=== PATIENT | male | born 1970 | race Asian ===

== ENCOUNTER → 2018-10-18 | Outpatient (CLI) | payer BC ==
[~2018-10-18] MED LIST: HYDR-3876 PO; NITR-33 PO; ROSU10TA12 PO
--- NOTE | 2018-10-18 14:56 | Diagnostic Imaging Report ---
INDICATION: Right-sided low back pain. Time of exam 11:58 AM 3 views of the lumbar spine were obtained. Curvature and alignment is normal. Vertebral body heights are maintained. Disc spaces are preserved. Minimal anterior spurring is seen at L4 and L5 levels. No fracture is detected. IMPRESSION: No acute bony abnormality is detected. Dictated by: Dictated on workstation # [id number]
== END ==
LOC: RAD FS 11:44
PROVIDERS: ATTEND Family Medicine
DX: M54.5 Low back pain (principal)
CPT/HCPCS: 72100

== ENCOUNTER → 2018-11-25 | Outpatient (CLI) | payer OTHER ==
--- NOTE | 2018-11-25 10:27 | Diagnostic Imaging Report ---
PROCEDURE: MRI lumbar spine. TECHNIQUE: Multiplanar, multisequence MRI of the lumbar spine was performed without contrast. INDICATION: Low back pain and right leg pain and numbness. COMPARISON: No prior studies are available for comparison. FINDINGS: There is some straightening of the normal lumbar lordotic curvature. Vertebral body heights are maintained. The marrow signal intensity is unremarkable. No geographic marrow lesion is seen. No fracture is identified. There is fairly normal height and signal intensity to the lumbar intervertebral discs with the exception of some mild disc space narrowing and desiccation at L4-5 level compatible with degenerative change. Conus is unremarkable at the L1 level. T12-L1: Central canal and neural foramina are widely patent. L1-2: Minimal ligamentous thickening is seen. Central canal and neural foramina remain patent. There are mild facet degenerative changes noted. L2-3: There is mild ligamentous thickening noted. Central canal remains patent. There does appear to be some broad-based far lateral disc/osteophyte complex narrowing the left neural foramen. This is noted to a mild degree on the right as well. L3-4: There is ligamentous thickening. There is some mild flattening of the ventral thecal sac but AP dimensions of the canal remain within normal limits. There does appear to be moderate bilateral neural foraminal narrowing due to broad-based disc/osteophyte complex. L4-5: Broad-based disc/osteophyte complex indents the ventral thecal sac. This does result in moderate narrowing of the central canal. There is also significant bilateral lateral recess stenosis. There is also moderate bilateral neural foraminal stenosis. L5-S1: Central canal is patent. Neural foramina are patent. The paraspinous tissues are unremarkable. IMPRESSION: Lumbar spondylosis and multilevel central canal, lateral recess and neural foraminal narrowing described level by level above. Dictated by: Dictated on workstation # [id number]
== END ==
LOC: RAD 08:50
PROVIDERS: ATTEND Family Medicine
DX: M48.061 Spinal stenosis, lumbar region without neurogenic claudication (principal); M47.816 Spondylosis without myelopathy or radiculopathy, lumbar region; M51.16 Intervertebral disc disorders with radiculopathy, lumbar region
CPT/HCPCS: 72148

== ENCOUNTER → 2019-01-31 | Outpatient (CLI) | payer OTHER ==
--- NOTE | 2019-01-31 17:42 | Diagnostic Imaging Report ---
INDICATION: Low back pain. TIME OF EXAM: 02:50 p.m. EXAMINATION: Multiple views of the lumbar spine were obtained. FINDINGS: Curvature and alignment is normal. Vertebral body heights are well-maintained. Flexion and extension views are without evidence of motion. Disc spaces are fairly well-maintained. IMPRESSION: No abnormal motion is identified during flexion or extension maneuvers. Dictated by: Dictated on workstation # [id number]
== END ==
LOC: RAD FS 14:41
PROVIDERS: ATTEND Neurological Surgery
DX: M54.16 Radiculopathy, lumbar region (principal)
CPT/HCPCS: 72110

== ENCOUNTER → 2019-05-09 | Outpatient (CLI) | payer OTHER ==
--- NOTE | 2019-05-09 10:56 | Diagnostic Imaging Report ---
Indication: Low back pain. 5 views were obtained. Findings: The alignment of the lumbar spine is normal. The vertebral body heights are well-maintained. No spondylolysis or spondylolisthesis. No fractures are identified. There is no abnormal subluxation with flexion or extension. Impression: Mild lumbar spondylosis otherwise unremarkable. Dictated by: Dictated on workstation # [id number]
== END ==
LOC: RAD FS 09:28
PROVIDERS: ATTEND Neurological Surgery
DX: M47.816 Spondylosis without myelopathy or radiculopathy, lumbar region (principal); M51.26 Other intervertebral disc displacement, lumbar region
CPT/HCPCS: 72110

== ENCOUNTER 2019-09-14 12:27 | Inpatient (IN) | payer OTHER ==
[~2019-09-14] VITALS: Ht 170.2 cm; Wt 69.0 kg
[2019-09-14] VITALS (7 sets, daily range): BP systolic 100–108; BP diastolic 70–80
[2019-09-14] MEDS ORDERED: NS IV 500 ML 500 ML IV ONE (13:03)
--- NOTE | 2019-09-14 13:06 | ED Chest Pain ---
General Chief Complaint: Chest Pain Stated Complaint: CHEST PAIN Source: patient Exam Limitations: no limitations History of Present Illness Date Seen by Provider: Sep 14, 2019 Time Seen by Provider: 12:48 Initial Comments The patient presents to ER by private conveyance with chief complaint that about one hour prior to arrival he began to experience some left sided nonradiating chest pain and pressure that centered in the left front of his chest. He's never had a chest pain like this before. He was waiting for her to go away and when it did not go away he called his doctor's office, Dr. Patrick and was advised to come to the ER. It started when he was on the phone at work not doing anything particularly strenuous. He says the pain is not worse with exertion. He does not have any shortness of breath cough fever chills nausea sweats diarrhea or constipation. No history of coronary disease. His dad was 70 when he had his first heart attack so no significant familial history. He does have hyperlipidemia but denies diabetes, hypertension, hypothyroidism. He has not taken anything for the pain. He does not have a history of GERD. He does not take aspirin. Other than the anti-hyperlipidemia medicines she takes vitamin D and that is it. He has no other significant medical history area and he has a history of surgery on his back. He denies routine NSAIDs. Allergies and Home Medications Allergies Coded Allergies: No Known Drug Allergies (Unverified , 07/24/14) Home Medications Hydrocodone/Acetaminophen 1 Each Tablet, 1-2 EACH PO Q4H Prescribed by: RAJANI ABEBE on 07/31/14 1243 Nitrofurantoin Macrocrystals 100 Mg Capsule, 1 EACH PO BID Prescribed by: RAJANI ABEBE on 07/31/14 1243 Rosuvastatin Calcium 10 Mg Tablet, 1 EACH PO DAILY, (Reported) Patient Home Medication List Home Medication List Reviewed: Yes Review of Systems Review of Systems Constitutional: No chills, No fever, No malaise EENTM: No Blurred Vision, No Double Vision Respiratory: Denies Cough, Denies Shortness of Air, Denies SOA With Exertion, Denies Wheezing Cardiovascular: See HPI, Chest Pain; Denies Edema, Denies Irregular Heart Rate, Denies Lightheadedness Gastrointestinal: Denies Abdominal Pain, Denies Constipated, Denies Diarrhea, Denies Nausea Genitourinary: Denies Burning, Denies Discharge Musculoskeletal: No back pain, No joint pain Skin: No pruritus, No rash Psychiatric/Neurological: Denies Headache, Denies Numbness, Denies Paresthesia All Other Systems Reviewed Negative Unless Noted: Yes Past Icwrctz-Pdouae-Fghdxk Hx Patient Social History Alcohol Use: Denies Use Recreational Drug Use: No Smoking Status: Never a Smoker Recent Foreign Travel: No Recent Hopitalizations: No Physical Abuse: No Sexual Abuse: No Mistreated: No Fear: No Seasonal Allergies Seasonal Allergies: No Past Medical History Surgeries: Yes (RENAL STONES- ESWL, BASKET, Back Surgery) Orthopedic Respiratory: No Cardiac: Yes High Cholesterol Neurological: No Genitourinary: No Gastrointestinal: No Musculoskeletal: No Endocrine: No HEENT: No Cancer: No Psychosocial: No Blood Disorders: No Physical Exam Vital Signs Vital Signs - First Documented 09/14/19 09/14/19 12:44 12:58 Temp 36.7 Pulse 71 Resp 12 B/P (MAP) 136/85 (102) Pulse Ox 12 O2 Delivery Room Air Capillary Refill : Less Than 3 Seconds Height, Weight, BMI Height: 5'" Weight: 146lbs. oz. 66.521203lc; BMI Method: General Appearance: No Apparent Distress, WD/WN HEENT: PERRL/EOMI, Pharynx Normal, Moist Mucous Membranes Neck: Full Range of Motion, Normal Inspection Respiratory: Chest Non Tender, Lungs Clear, Normal Breath Sounds, No Accessory Muscle Use, No Respiratory Distress Cardiovascular: Regular Rate, Rhythm, No Edema, No JVD, No Murmur, Normal Peripheral Pulses Gastrointestinal: Normal Bowel Sounds, No Organomegaly, Non Tender, Soft Extremity: Normal Capillary Refill, Normal Inspection, Non Tender, No Calf Tenderness, No Pedal Edema Neurologic/Psychiatric: Alert, Oriented x3 Skin: Normal Color, Warm/Dry Progress/Results/Core Measures Results/Orders Lab Results Laboratory Tests Test 09/14/19 12:48 09/14/19 13:40 Range/Units White Blood Count 5.7 4.3-11.0 10^3/uL Red Blood Count 5.14 4.35-5.85 10^6/uL Hemoglobin 15.9 13.3-17.7 G/DL Hematocrit 48 40-54 % Mean Corpuscular Volume 94 80-99 FL Mean Corpuscular Hemoglobin 31 25-34 PG Mean Corpuscular Hemoglobin Concent 33 32-36 G/DL Red Cell Distribution Width 12.1 10.0-14.5 % Platelet Count 279 130-400 10^3/uL Mean Platelet Volume 9.7 7.4-10.4 FL Neutrophils (%) (Auto) 59 42-75 % Lymphocytes (%) (Auto) 28 12-44 % Monocytes (%) (Auto) 9 0-12 % Eosinophils (%) (Auto) 3 0-10 % Basophils (%) (Auto) 1 0-10 % Neutrophils # (Auto) 3.4 1.8-7.8 X 10^3 Lymphocytes # (Auto) 1.6 1.0-4.0 X 10^3 Monocytes # (Auto) 0.5 0.0-1.0 X 10^3 Eosinophils # (Auto) 0.1 0.0-0.3 10^3/uL Basophils # (Auto) 0.1 0.0-0.1 10^3/uL Prothrombin Time 12.3 12.2-14.7 SEC INR Comment 0.9 0.8-1.4 Activated Partial Thromboplast Time 29 24-35 SEC Sodium Level 138 135-145 MMOL/L Potassium Level 3.6 3.6-5.0 MMOL/L Chloride Level 99 98-107 MMOL/L Carbon Dioxide Level 27 21-32 MMOL/L Anion Gap 12 5-14 MMOL/L Blood Urea Nitrogen 13 7-18 MG/DL Creatinine 0.88 0.60-1.30 MG/DL Estimat Glomerular Filtration Rate > 60 BUN/Creatinine Ratio 15 Glucose Level 131 H 70-105 MG/DL Calcium Level 9.3 8.5-10.1 MG/DL Corrected Calcium 8.5-10.1 MG/DL Magnesium Level 2.2 1.6-2.4 MG/DL Total Bilirubin 0.5 0.1-1.0 MG/DL Aspartate Amino Transf (AST/SGOT) 24 5-34 U/L Alanine Aminotransferase (ALT/SGPT) 38 0-55 U/L Alkaline Phosphatase 75 40-136 U/L Myoglobin 24.2 10.0-92.0 NG/ML Troponin I < 0.30 <0.30 NG/ML Total Protein 8.4 H 6.4-8.2 GM/DL Albumin 5.0 H 3.2-4.5 GM/DL Lipase 42 8-78 U/L Urine Color YELLOW Urine Clarity CLEAR Urine pH 6.5 5-9 Urine Specific [place] 1.010 L 1.016-1.022 Urine Protein NEGATIVE NEGATIVE Urine Glucose (UA) TRACE H NEGATIVE Urine Ketones NEGATIVE NEGATIVE Urine Nitrite NEGATIVE NEGATIVE Urine Bilirubin NEGATIVE NEGATIVE Urine Urobilinogen 0.2 < = 1.0 MG/DL Urine Leukocyte Esterase NEGATIVE NEGATIVE Urine RBC (Auto) NEGATIVE NEGATIVE Urine RBC NONE /HPF Urine WBC NONE /HPF Urine Squamous Epithelial Cells RARE /HPF Urine Crystals NONE /LPF Urine Bacteria NEGATIVE /HPF Urine Casts NONE /LPF Urine Mucus NEGATIVE /LPF Urine Culture Indicated NO Urine Opiates Screen NEGATIVE NEGATIVE Urine Oxycodone Screen NEGATIVE NEGATIVE Urine Methadone Screen NEGATIVE NEGATIVE Urine Propoxyphene Screen NEGATIVE NEGATIVE Urine Barbiturates Screen NEGATIVE NEGATIVE Ur Tricyclic Antidepressants Screen NEGATIVE NEGATIVE Urine Phencyclidine Screen NEGATIVE NEGATIVE Urine Amphetamines Screen NEGATIVE NEGATIVE Urine Methamphetamines Screen NEGATIVE NEGATIVE Urine Benzodiazepines Screen NEGATIVE NEGATIVE Urine Cocaine Screen NEGATIVE NEGATIVE Urine Cannabinoids Screen NEGATIVE NEGATIVE My Orders Orders - LINWOOD,JENY J Continuous Ekg Monitoring (09/14/19 12:51) Ekg Tracing (09/14/19 12:51) Cbc With Automated Diff (09/14/19 13:03) Magnesium (09/14/19 13:03) Chest 1 View Ap/Pa Only (09/14/19 13:03) Comprehensive Metabolic Panel (09/14/19 13:03) Myoglobin Serum (09/14/19 13:03) Protime With Inr (09/14/19 13:03) Partial Thromboplastin Time (09/14/19 13:03) O2 (09/14/19 13:03) Lipid Panel (09/15/19 06:00) Aspirin Chewable Tablet (Baby Aspirin Ch (09/14/19 13:15) Nitroglycerin 0.4 Mg Btl 25's (Nitrostat (09/14/19 13:15) Ed Iv/Invasive Line Start (09/14/19 13:03) Lipase (09/14/19 13:03) Troponin I Fs (09/14/19 13:03) Ed Iv/Invasive Line Start (09/14/19 13:03) Ns Iv 500 Ml (Sodium Chloride 0.9%) (09/14/19 13:03) Ua Culture If Indicated (09/14/19 13:41) Drug Screen Stat (Urine) (09/14/19 13:41) Enoxaparin Injection (Lovenox Injection) (09/14/19 14:45) Ed Iv/Invasive Line Start (09/14/19 14:37) Lactated Ringers (Lr 1000 Ml Iv Solution (09/14/19 14:37) Medications Given in ED Current Medications Medications Dose Ordered Sig/Patrick Route Start Time Stop Time Status Last Admin Dose Admin Aspirin 324 mg ONCE ONCE PO 09/14/19 13:15 09/14/19 13:16 DC 09/14/19 13:12 324 MG Nitroglycerin 0.4 mg UD PRN SL 09/14/19 13:15 09/14/19 13:13 0.4 MG Sodium Chloride 500 ml @ 0 mls/hr Q0M ONCE IV 09/14/19 13:03 09/14/19 13:04 DC 09/14/19 13:13 0 MLS/HR Vital Signs/I&O 09/14/19 09/14/19 12:44 12:58 Temp 36.7 Pulse 71 Resp 12 B/P (MAP) 136/85 (102) Pulse Ox 12 O2 Delivery Room Air Room Air Progress Progress Note #1: Time: 13:46 Progress Note Patient did get some relief with nitroglycerin and his pain is almost gone however his blood pressure dipped down to 100/60. We'll give him a small fluid bolus and allow him to recover. He is no longer in acute distress. He has 1 cardiac risk factor of hyperlipidemia. He does not have hypoxia or tachycardia and is not on beta blockers. He has no recent surgery or period of immobility or evidence of DVT so pulmonary embolism is unlikely. Well score 0.0 points; Low risk group: 1.3% chance of PE in an ED population. Perc Rule: 0 criteria; No need for further workup, as <2% chance of PE. If no criteria are positive and clinicians pre-test probability is <15%, PERC Rule criteria are satisfied. Heart score: Low risk; 0.91.7% 30-day MACE; Repeat troponin at 3 hours and if negative, discharge home with outpatient follow-up. 1545. Progress Note #2: Time: 14:34 Progress Note Patient states his pain has come back sharp in the left side of his chest nonradiating about a 5 out of 10. Because his blood pressures 103/70 we will not give him nitroglycerin. We offered morphine and he declined saying he can stand it he does not want take morphine he doesn't have to. Because his pain is back we have recommended him for observation stay. Initial ECG Impression Date: Sep 14, 2019 Initial ECG Impression Time: 12:46 Initial ECG Rate: 67 Initial ECG Rhythm: Normal Sinus Initial ECG Intervals: Normal Initial ECG Impression: Normal Initial ECG Comparisson: No Previous ECG Available Comment No ST elevation or depression. Normal sinus rhythm. Diagnostic Imaging Diagonstic Imaging: Xray Plain Films/CT/US/NM/MRI: chest (1v) Comments [facility], [place] NAME: BENNIE ROMAN V MED REC#: [id number] PT STATUS: REG ER : 1970 PHYSICIAN: JENY PALUMBO MD ADMIT DATE: 09/14/19/ER FS Draft Date of Exam:09/14/19 CHEST 1 VIEW AP/PA ONLY PATIENT HISTORY: Chest pain. TECHNIQUE: Single frontal view of the chest. COMPARISON: None FINDINGS: The lung volumes are normal. There is eventration of the right diaphragm. No focal consolidation is seen. No large pleural effusion or pneumothorax is seen. The cardiomediastinal silhouette is normal in size and contour. No acute osseous abnormality is seen. IMPRESSION: No acute pulmonary abnormality seen. Dictated on workstation # [id number] Dict: 09/14/19 1316 Trans: 09/14/19 1317 [facility] [id number] Interpreted by: DOMINIK CRUMP MD Electronically signed by: Reviewed: Reviewed by Me Consults : Consulting Physician: CECI WARD MD Consults Notes If he is chest pain-free and delta troponin is negative. He had to see him in the clinic on Wednesday. Departure Communication (Admissions) Time/Spoke to Admitting Phy: 14:50 Discussed case lab imaging findings with Dr. Li and she agrees to observe the patient for acute coronary syndrome. Time/Spoke to Consulting Phy: 14:35 Discussed the case with Dr. Ward, cardiology and he agrees to consult on the patient. Lovenox, aspirin and fluid bolus. Impression Primary Impression: Chest pain Qualified Codes: R07.9 - Chest pain, unspecified Additional Impression: Acute coronary syndrome Disposition: HOME, SELF-CARE Condition: Stable Admissions Decision to Admit Reason: Admit from ER (General) Decision to Admit/Date: Sep 14, 2019 Time/Decision to Admit Time: 14:30 Departure-Patient Inst. Referrals: DAMIAN PATRICK MD (PCP/Family) Primary Care Physician JENY PALUMBO Sep 14, 2019 13:06
[2019-09-14] MEDS ORDERED: ASPIRIN 81 MG CHEW (CHILDREN'S ASA) PO ONE (13:15)
[2019-09-14] MEDS ORDERED: NITROGLYCERIN 0.4 MG SL TABS BTL 25'S SL PRN ×2 (13:15→17:00)
--- NOTE | 2019-09-14 13:18 | Diagnostic Imaging Report ---
PATIENT HISTORY: Chest pain. TECHNIQUE: Single frontal view of the chest. COMPARISON: None FINDINGS: The lung volumes are normal. There is eventration of the right diaphragm. No focal consolidation is seen. No large pleural effusion or pneumothorax is seen. The cardiomediastinal silhouette is normal in size and contour. No acute osseous abnormality is seen. IMPRESSION: No acute pulmonary abnormality seen. Dictated by: Dictated on workstation # [id number]
[2019-09-14 13:30] LABS: INR 0.9 (0.8-1.4); PROTHROMBIN TIME PATIENT 12.3 SEC (12.2-14.7)
[2019-09-14 13:31] LABS: BASOPHILS # (AUTO) 0.1 10^3/uL (0.0-0.1); BASOPHILS % (AUTO) 1 % (0-10); EOSINOPHILS # (AUTO) 0.1 10^3/uL (0.0-0.3); EOSINOPHILS % (AUTO) 3 % (0-10); HEMATOCRIT 48 % (40-54); HEMOGLOBIN 15.9 G/DL (13.3-17.7); LYMPHOCYTES # (AUTO) 1.6 X 10^3 (1.0-4.0); LYMPHOCYTES % (AUTO) 28 % (12-44); MEAN CORPUSCULAR HEMOGLOBIN 31 PG (25-34); MEAN CORPUSCULAR HGB CONC 33 G/DL (32-36); MEAN CORPUSCULAR VOLUME 94 FL (80-99); MEAN PLATELET VOLUME 9.7 FL (7.4-10.4); MONOCYTES # (AUTO) 0.5 X 10^3 (0.0-1.0); MONOCYTES % (AUTO) 9 % (0-12); NEUTROPHILS # (AUTO) 3.4 X 10^3 (1.8-7.8); NEUTROPHILS % (AUTO) 59 % (42-75); PLATELET COUNT 279 10^3/uL (130-400); RED CELL DISTRIBUTION WIDTH 12.1 % (10.0-14.5); WHITE BLOOD COUNT 5.7 10^3/uL (4.3-11.0)
[2019-09-14 13:36] LABS: BUN/CREATININE RATIO 15; CARBON DIOXIDE 27 MMOL/L (21-32); CHLORIDE 99 MMOL/L (98-107); CREATININE SERUM 0.88 MG/DL (0.60-1.30); GFR ESTIMATED > 60; POTASSIUM 3.6 MMOL/L (3.6-5.0); SODIUM 138 MMOL/L (135-145)
[2019-09-14 13:37] LABS: ALANINE AMINOTRANSFERASE 38 U/L (0-55); ALKALINE PHOSPHATASE 75 U/L (40-136); BILIRUBIN,TOTAL 0.5 MG/DL (0.1-1.0); CALCIUM 9.3 MG/DL (8.5-10.1); GLUCOSE 131 MG/DL (70-105); LIPASE 42 U/L (8-78); MAGNESIUM 2.2 MG/DL (1.6-2.4); TOTAL PROTEIN 8.4 GM/DL (6.4-8.2)
[2019-09-14 14:17] LABS: BILIRUBIN,URINE NEGATIVE (NEGATIVE); CLARITY,URINE CLEAR; COLOR,URINE YELLOW; GLUCOSE, URINE (UA) TRACE (NEGATIVE); KETONES,URINE NEGATIVE (NEGATIVE); LEUKOCYTE ESTERASE ,URINE NEGATIVE (NEGATIVE); NITRITE,URINE NEGATIVE (NEGATIVE); PH,URINE 6.5 (5-9); PROTEIN,URINE NEGATIVE (NEGATIVE)
[2019-09-14 14:18] LABS: BACTERIA,URINE NEGATIVE /HPF; SQUAMOUS EPITHELIAL CELL,UR RARE /HPF
[2019-09-14 14:33] LABS: AMPHETAMINE SCREEN, URINE NEGATIVE (NEGATIVE); BARBITURATE SCREEN URINE NEGATIVE (NEGATIVE); BENZODIAZEPINES SCREEN URINE NEGATIVE (NEGATIVE); CANNABINOID SCREEN, URINE NEGATIVE (NEGATIVE); COCAINE SCREEN URINE NEGATIVE (NEGATIVE); METHADONE STAT NEGATIVE (NEGATIVE); METHAMPHETAMINE SCREEN URINE S NEGATIVE (NEGATIVE); OPIATE SCREEN URINE NEGATIVE (NEGATIVE); OXYCODONE STAT NEGATIVE (NEGATIVE); PROPOXYPHENE STAT NEGATIVE (NEGATIVE); TRICYCLIC ANTIDEPRESSANTS SCRE NEGATIVE (NEGATIVE)
[2019-09-14] MEDS ORDERED: LACTATED RINGERS 1,000 ML IV ONE (14:37)
[2019-09-14] MEDS ORDERED: ENOXAPARIN 80 MG/0.8 ML (LOVENOX) SYR SC ONE (14:45)
[2019-09-14] MEDS ORDERED: ACETAMINOPHEN 500 MG TAB (TYLENOL) PO PRN (17:00)
[2019-09-14] MEDS ORDERED: morphine INJ 4 MG/ML 1 ML (VIAL/SYRINGE) IV PRN (17:00)
[2019-09-14] MEDS ORDERED: CATHETER FLUSH 10 ML SYR IV PRN (17:00)
[2019-09-14] MEDS ORDERED: ANTACID SUSP 30 ML UDC (MYLANTA) PO PRN (17:00)
[2019-09-14] MEDS ORDERED: ONDANSETRON 4 MG/2 ML (SDV) Z0FRAN IV PRN (17:00)
[2019-09-14] MEDS ORDERED: FLU QUADRIvalent (5+ YOA) 2019-2020 (AFLURIA) 0.5 ML IM ONE (17:45)
[2019-09-14] MEDS ORDERED: ENOXAPARIN 80 MG/0.8 ML (LOVENOX) SYR ONE (17:57)
--- NOTE | 2019-09-14 18:47 | Consultation-Cardiology ---
HPI-Cardiology Cardiology Consultation Date of Consultation 09/14/19 Date of Admission Time Seen by Provider: 18:44 Indication: Chest pain HPI 48 years old gentleman with history of hyperlipidemia, family history of heart disease. Was in his usual state of health until yesterday evening when he had an episode of chest pain described as dull in nature on the left side of his chest not associated with shortness of breath or any other symptoms. Resolved spontaneously then had another episode this morning. Came into the emergency room and pain improved after receiving sublingual nitroglycerin. Currently laying down in bed pain free. Denied any palpitation, no syncope or near syncopal episode, no dyspnea, concern about his chest pain. EKG showed poor R-wave progression in the anterior leads. Father had history of stent in his 70s Home Medications & Allergies Allergies: Coded Allergies: No Known Drug Allergies (Unverified , 07/24/14) Home Medication List Reviewed: Yes RYY-Rxomku-Vvyirb Hx Patient Social History Marital Status: Alcohol Use: Denies Use Recreational Drug Use: No Smoking Status: Never a Smoker Recent Foreign Travel: No Recent Infectious Disease Expo: No Recent Hopitalizations: No Past Medical History Discussed below Family Medical History Family Medical Hx Father has history of stent in his 70s Review of Systems-General Review of Systems Constitutional: No chills, No fever, No malaise EENTM: see HPI, no symptoms reported Respiratory: see HPI; No cough, No dyspnea on exertion, No hemoptysis, No orthopnea, No phlegm, No short of breath, No stridor, No wheezing, No other Cardiovascular: see HPI, chest pain; No edema, No Hx of Intervention, No palpitations, No syncope, No vascular heart diseas, No other Gastrointestinal: no symptoms reported, see HPI Genitourinary: no symptoms reported, see HPI Musculoskeletal: see HPI; No back pain, No joint pain Skin: see HPI; No pruritus, No rash Psychiatric/Neurological: See HPI; Denies Headache, Denies Numbness, Denies Paresthesia All Other Systems Reviewed Negative Unless Noted: Yes Reviewed Test Results Reviewed Test Results Lab Laboratory Tests Test 09/14/19 12:48 09/14/19 13:40 Range/Units White Blood Count 5.7 4.3-11.0 10^3/uL Red Blood Count 5.14 4.35-5.85 10^6/uL Hemoglobin 15.9 13.3-17.7 G/DL Hematocrit 48 40-54 % Mean Corpuscular Volume 94 80-99 FL Mean Corpuscular Hemoglobin 31 25-34 PG Mean Corpuscular Hemoglobin Concent 33 32-36 G/DL Red Cell Distribution Width 12.1 10.0-14.5 % Platelet Count 279 130-400 10^3/uL Mean Platelet Volume 9.7 7.4-10.4 FL Neutrophils (%) (Auto) 59 42-75 % Lymphocytes (%) (Auto) 28 12-44 % Monocytes (%) (Auto) 9 0-12 % Eosinophils (%) (Auto) 3 0-10 % Basophils (%) (Auto) 1 0-10 % Neutrophils # (Auto) 3.4 1.8-7.8 X 10^3 Lymphocytes # (Auto) 1.6 1.0-4.0 X 10^3 Monocytes # (Auto) 0.5 0.0-1.0 X 10^3 Eosinophils # (Auto) 0.1 0.0-0.3 10^3/uL Basophils # (Auto) 0.1 0.0-0.1 10^3/uL Prothrombin Time 12.3 12.2-14.7 SEC INR Comment 0.9 0.8-1.4 Activated Partial Thromboplast Time 29 24-35 SEC Sodium Level 138 135-145 MMOL/L Potassium Level 3.6 3.6-5.0 MMOL/L Chloride Level 99 98-107 MMOL/L Carbon Dioxide Level 27 21-32 MMOL/L Anion Gap 12 5-14 MMOL/L Blood Urea Nitrogen 13 7-18 MG/DL Creatinine 0.88 0.60-1.30 MG/DL Estimat Glomerular Filtration Rate > 60 BUN/Creatinine Ratio 15 Glucose Level 131 H 70-105 MG/DL Calcium Level 9.3 8.5-10.1 MG/DL Corrected Calcium 8.5-10.1 MG/DL Magnesium Level 2.2 1.6-2.4 MG/DL Total Bilirubin 0.5 0.1-1.0 MG/DL Aspartate Amino Transf (AST/SGOT) 24 5-34 U/L Alanine Aminotransferase (ALT/SGPT) 38 0-55 U/L Alkaline Phosphatase 75 40-136 U/L Myoglobin 24.2 10.0-92.0 NG/ML Troponin I < 0.30 <0.30 NG/ML Total Protein 8.4 H 6.4-8.2 GM/DL Albumin 5.0 H 3.2-4.5 GM/DL Lipase 42 8-78 U/L Urine Color YELLOW Urine Clarity CLEAR Urine pH 6.5 5-9 Urine Specific [place] 1.010 L 1.016-1.022 Urine Protein NEGATIVE NEGATIVE Urine Glucose (UA) TRACE H NEGATIVE Urine Ketones NEGATIVE NEGATIVE Urine Nitrite NEGATIVE NEGATIVE Urine Bilirubin NEGATIVE NEGATIVE Urine Urobilinogen 0.2 < = 1.0 MG/DL Urine Leukocyte Esterase NEGATIVE NEGATIVE Urine RBC (Auto) NEGATIVE NEGATIVE Urine RBC NONE /HPF Urine WBC NONE /HPF Urine Squamous Epithelial Cells RARE /HPF Urine Crystals NONE /LPF Urine Bacteria NEGATIVE /HPF Urine Casts NONE /LPF Urine Mucus NEGATIVE /LPF Urine Culture Indicated NO Urine Opiates Screen NEGATIVE NEGATIVE Urine Oxycodone Screen NEGATIVE NEGATIVE Urine Methadone Screen NEGATIVE NEGATIVE Urine Propoxyphene Screen NEGATIVE NEGATIVE Urine Barbiturates Screen NEGATIVE NEGATIVE Ur Tricyclic Antidepressants Screen NEGATIVE NEGATIVE Urine Phencyclidine Screen NEGATIVE NEGATIVE Urine Amphetamines Screen NEGATIVE NEGATIVE Urine Methamphetamines Screen NEGATIVE NEGATIVE Urine Benzodiazepines Screen NEGATIVE NEGATIVE Urine Cocaine Screen NEGATIVE NEGATIVE Urine Cannabinoids Screen NEGATIVE NEGATIVE Physical Exam Physical Exam Vital Signs Vital Signs - First Documented 09/14/19 09/14/19 12:44 12:58 Temp 36.7 Pulse 71 Resp 12 B/P (MAP) 136/85 (102) Pulse Ox 12 O2 Delivery Room Air Capillary Refill : Less Than 3 Seconds Height, Weight, BMI Height: 5'" Weight: 146lbs. oz. 66.701994eb; 23.54 BMI Method: General Appearance: No Apparent Distress, WD/WN Eyes: Bilateral Eye Normal Inspection, Bilateral Eye PERRL, Bilateral Eye EOMI HEENT: PERRL/EOMI, Pharynx Normal, Moist Mucous Membranes Neck: Full Range of Motion, Normal Inspection Respiratory: Chest Non Tender, Lungs Clear, Normal Breath Sounds, No Accessory Muscle Use, No Respiratory Distress Cardiovascular: Regular Rate, Rhythm, No Edema, No JVD, No Murmur, Normal Peripheral Pulses Gastrointestinal: Normal Bowel Sounds, No Organomegaly, Non Tender, Soft Back: Normal Inspection, No CVA Tenderness, No Vertebral Tenderness Extremity: Normal Capillary Refill, Normal Inspection, Non Tender, No Calf Tenderness, No Pedal Edema Neurologic/Psychiatric: Alert, Oriented x3 Skin: Normal Color, Warm/Dry Lymphatic: No Adenopathy A/P-Cardiology Admission Diagnosis Chest pain Hypertension Hyperlipidemia Family history of atherosclerosis Assessment/Plan Chest pain nonspecific etiology, atypical in presentation, first set of cardiac enzymes were negative. Planning to monitor his cardiac enzymes then proceed with stress test if his cardiac enzymes were negative. Hypertension, currently hypotensive. Monitor blood pressure. Next Hyperlipidemia maintained on statin. Next Family history of atherosclerosis Clinical Quality Measures AMI/AHF: ASA po Prior to arrival: No DVT/VTE Risk/Contraindication: Risk Factor Score Per Nursin RFS Level Per Nursing on Admit: 1=Low/No VTE PPX CECI KHAN MD Sep 14, 2019 18:47
[2019-09-14] MEDS: NS IV 1000 ML 1,000 ML IV SCH (19:04)
[2019-09-15] VITALS: BP 92/62
[2019-09-15] MEDS: CATHETER FLUSH 10 ML SYR IV SCH ×2 (00:16→06:46)
[2019-09-15 03:36] LABS: BASOPHILS % (AUTO) 0 % (0-10); EOSINOPHILS # (AUTO) 0.3 10^3/uL (0.0-0.3); EOSINOPHILS % (AUTO) 4 % (0-10); HEMATOCRIT 41 % (40-54); HEMOGLOBIN 13.7 G/DL (13.3-17.7); LYMPHOCYTES # (AUTO) 2.5 X 10^3 (1.0-4.0); LYMPHOCYTES % (AUTO) 37 % (12-44); MEAN CORPUSCULAR HEMOGLOBIN 31 PG (25-34); MEAN CORPUSCULAR HGB CONC 33 G/DL (32-36); MEAN CORPUSCULAR VOLUME 93 FL (80-99); MEAN PLATELET VOLUME 10.2 FL (7.4-10.4); MONOCYTES # (AUTO) 0.8 X 10^3 (0.0-1.0); MONOCYTES % (AUTO) 12 % (0-12); NEUTROPHILS # (AUTO) 3.2 X 10^3 (1.8-7.8); NEUTROPHILS % (AUTO) 47 % (42-75); PLATELET COUNT 249 10^3/uL (130-400); RED CELL DISTRIBUTION WIDTH 12.6 % (10.0-14.5); WHITE BLOOD COUNT 6.7 10^3/uL (4.3-11.0)
[2019-09-15 04:00] VITALS: BP 85/59
[2019-09-15 04:04] LABS: ALANINE AMINOTRANSFERASE 40 U/L (0-55); ALBUMIN 3.7 GM/DL (3.2-4.5); ALKALINE PHOSPHATASE 60 U/L (40-136); BILIRUBIN,TOTAL 0.2 MG/DL (0.1-1.0); BUN/CREATININE RATIO 20; CALCIUM 8.4 MG/DL (8.5-10.1); CARBON DIOXIDE 19 MMOL/L (21-32); CHLORIDE 109 MMOL/L (98-107); CHOLESTEROL 163 MG/DL (< 200); CREATININE SERUM 0.81 MG/DL (0.60-1.30); GFR ESTIMATED > 60; GLUCOSE 109 MG/DL (70-105); HDL CHOLESTEROL 34 MG/DL (40-60); POTASSIUM 3.7 MMOL/L (3.6-5.0); SODIUM 139 MMOL/L (135-145); TOTAL PROTEIN 6.4 GM/DL (6.4-8.2); TRIGLYCERIDES 381 MG/DL (<150); VLDL CHOLESTEROL 76 MG/DL (5-40)
[2019-09-15 04:05] LABS: CHOLESTEROL 161 MG/DL (< 200); HDL CHOLESTEROL 34 MG/DL (40-60); TRIGLYCERIDES 378 MG/DL (<150); VLDL CHOLESTEROL 76 MG/DL (5-40)
[2019-09-15] MEDS: NS IV 1000 ML 1,000 ML IV SCH (05:05)
[2019-09-15] MEDS ORDERED: ASPIRIN E.C. 81 MG (ECOTRIN) TAB PO SCH (09:00)
--- NOTE | 2019-09-15 11:05 | STRESS TEST ---
DATE OF SERVICE: 09/15/2019 EXERCISE MYOVIEW STRESS TEST REFERRING PHYSICIAN: Germán Deleon MD. INDICATION: Chest pain. FINDINGS: Baseline heart rate is 57, baseline blood pressure 110/74. Baseline EKG is sinus rhythm with no ischemic changes. In summary, the patient was injected with 10.96 mCi of technetium-99 Myoview and the resting images were obtained. Then, the patient started exercising with a baseline heart rate, blood pressure and EKG mentioned above. The patient was able to exercise for a total of 11 minutes and 30 seconds on standard Dariel protocol. With peak exercise level, blood pressure was 188/59. During recovery, heart rate and blood pressure returned to baseline. EKG returned to baseline. The resting and stress images were reviewed and compared in the short axis, horizontal long axis, and vertical long axis views. Review of the images showed good radiotracer uptake with no significant ischemia or infarction. SSS is 3, SDS 3, TID value 1.08. On the gated images, the left ventricle appeared to be in normal size with normal contractility. Calculated ejection fraction is 56%. CONCLUSION: 1. Excellent exercise tolerance, a total of 11 minutes 30 seconds on standard Dariel protocol, total of 12.1 METs, achieving 86% of maximum expected heart rate. 2. Appropriate heart rate and blood pressure response to exercise returned to baseline during recovery. 3. Minimal nondiagnostic EKG changes with exercise returned to baseline during recovery. 4. No ischemia or infarction on SPECT images. 5. Normal left ventricular size with normal contractility. Calculated ejection fraction is 56%. Job ID: [id number] DocumentID: [id number] Dictated Date: 09/15/2019 10:40:49 Legal Billing Coordinator Date: 09/15/2019 11:05:02 Dictated By: CECI KHAN MD
[2019-09-15] MEDS ORDERED: ATOR10TA66 PO (11:45)
[2019-09-15] MEDS ORDERED: ERGO50006 PO (11:45)
--- NOTE | 2019-09-15 11:45 | NUR ---
PATIENT STATES HE TAKES LIPITOR DAILY AND VITAMIN D WEEKLY ON SATURDAYS. I VERIFIED THE DOSES WITH THE EXT MED HX. HE DOES NOT TAKE ANYTHING OTC.
--- NOTE | 2019-09-15 11:48 | Cardiology Progress Note ---
Subjective Date Seen by Provider: Sep 15, 2019 Time Seen by Provider: 11:45 Subjective/Events-last exam Patient is in bed, feeling better. No chest pain. No palpitation. Review of Systems General: No Chills, No Night Sweats, No Fatigue, No Malaise, No Appetite, No Other HEENT: No Head Aches, No Visual Changes, No Eye Pain, No Ear Pain, No Dysphasia, No Sinus Congestion, No Post Nasal Drip, No Sore Throat, No Other Pulmonary: No Dyspnea, No Cough, No Pleuritic Chest Pain, No Other Cardiovascular: No: Chest Pain, Palpitations, Orthopnea, Paroxysmal Noc. Dyspnea, Edema, Lt Headedness, Other Objective-Cardiology Exam Last Set of Vital Signs Vital Signs 09/15/19 09/15/19 06:43 09:00 Pulse 67 Pulse Ox 97 O2 Delivery Room Air Capillary Refill : Less Than 3 Seconds I&O Intake and Output 09/15/19 00:00 Intake Total 1000 ml Balance 1000 ml Intake Oral 500 ml IV Total 500 ml # Voids 2 Daily Weight Change No No General: Alert, Oriented X3, Cooperative HEENT: Atraumatic, PERRLA Neck: Supple, No JVD, No Thyromegaly Lungs: Clear to Auscultation, Normal Air Movement Heart: Regular Rate, Normal S1, Normal S2, No Murmurs Abdomen: Normal Bowel Sounds, Soft, No Tenderness, No Hepatosplenomegaly, No Masses Extremities: No Clubbing, No Cyanosis, No Edema, Normal Pulses, No Tenderness/Swelling Skin: No Rashes, No Breakdown, No Significant Lesion Neuro: Normal Gait, Normal Speech, Strength at 5/5 X4 Ext, Normal Tone, Sensation Intact Psych/Mental Status: Mental Status NL, Mood NL Results Lab Laboratory Tests 09/14/19 12:48 09/15/19 02:59 A/P-Cardiology Admission Diagnosis Chest pain Hypertension Hyperlipidemia Family history of atherosclerosis Assessment/Plan Chest pain nonspecific etiology, atypical in presentation, feeling better. Cardiac enzymes and EKG were negative. Stress test showed no significant ischemia or infarction, normal EF, able to exercise 11 minutes and 30 seconds on standard Dariel protocol. No EKG changes. Okay for discharge from cardiology standpoint, follow-up as an outpatient. Hypertension, better at this time. Continue to monitor Hyperlipidemia maintained on statin, hypertriglyceridemia, add Fish oil and monitor lipids as an outpatient Family history of atherosclerosis Okay for discharge and follow-up as an outpatient Clinical Quality Measures AMI/AHF: ASA po Prior to arrival: No DVT/VTE Risk/Contraindication: Risk Factor Score Per Nursin RFS Level Per Nursing on Admit: 1=Low/No VTE PPX CECI KHAN MD Sep 15, 2019 11:48
[2019-09-15] MEDS ORDERED: PANT40SU PO (11:49)
--- NOTE | 2019-09-15 12:01 | Short Stay Summary ---
Discharge Summary Hospital Course Final Diagnosis: Chest pain Hospital Course Date of Admission: Sep 14, 2019 at 14:50 Admission Diagnosis : Family Physician/Provider: Damian Patrick MD Date of Discharge: 09/15/19 Discharge Diagnosis: Chest pain Acid reflux Normal stress test Hospital Course: Pt admitted for chest pain work-up, had normal stress test and negative trop onins. He would like to consider gall bladder evaluation, deferred to outpatient. Started on PPI for reflux symptoms. Labs and Pending Lab Test: Laboratory Tests 09/14/19 12:48: White Blood Count 5.7, Red Blood Count 5.14, Hemoglobin 15.9, Hematocrit 48, Mean Corpuscular Volume 94, Mean Corpuscular Hemoglobin 31, Mean Corpuscular Hemoglobin Concent 33, Red Cell Distribution Width 12.1, Platelet Count 279, Mean Platelet Volume 9.7, Neutrophils (%) (Auto) 59, Lymphocytes (%) (Auto) 28, Monocytes (%) (Auto) 9, Eosinophils (%) (Auto) 3, Basophils (%) (Auto) 1, Neutrophils # (Auto) 3.4, Lymphocytes # (Auto) 1.6, Monocytes # (Auto) 0.5, Eosinophils # (Auto) 0.1, Basophils # (Auto) 0.1, Prothrombin Time 12.3, INR Comment 0.9, Activated Partial Thromboplast Time 29, Sodium Level 138, Potassium Level 3.6, Chloride Level 99, Carbon Dioxide Level 27, Anion Gap 12, Blood Urea Nitrogen 13, Creatinine 0.88, Estimat Glomerular Filtration Rate > 60, BUN/Creatinine Ratio 15, Glucose Level 131H, Calcium Level 9.3, Corrected Calcium , Magnesium Level 2.2, Total Bilirubin 0.5, Aspartate Amino Transf (AST/SGOT) 24, Alanine Aminotransferase (ALT/SGPT) 38, Alkaline Phosphatase 75, Myoglobin 24.2, Troponin I < 0.30, Total Protein 8.4H, Albumin 5.0H, Lipase 42 09/14/19 13:40: Urine Color YELLOW, Urine Clarity CLEAR, Urine pH 6.5, Urine Specific [place] 1.010L, Urine Protein NEGATIVE, Urine Glucose (UA) TRACEH, Urine Ketones NEGATIVE, Urine Nitrite NEGATIVE, Urine Bilirubin NEGATIVE, Urine Urobilinogen 0.2, Urine Leukocyte Esterase NEGATIVE, Urine RBC (Auto) NEGATIVE, Urine RBC NONE, Urine WBC NONE, Urine Squamous Epithelial Cells RARE, Urine Crystals NONE, Urine Bacteria NEGATIVE, Urine Casts NONE, Urine Mucus NEGATIVE, Urine Culture Indicated NO, Urine Opiates Screen NEGATIVE, Urine Oxycodone Screen NEGATIVE, Urine Methadone Screen NEGATIVE, Urine Propoxyphene Screen NEGATIVE, Urine Barbiturates Screen NEGATIVE, Ur Tricyclic Antidepressants Screen NEGATIVE, Urine Phencyclidine Screen NEGATIVE, Urine Amphetamines Screen NEGATIVE, Urine Methamphetamines Screen NEGATIVE, Urine Benzodiazepines Screen NEGATIVE, Urine Cocaine Screen NEGATIVE, Urine Cannabinoids Screen NEGATIVE 09/15/19 00:12: Troponin I < 0.028 09/15/19 02:59: White Blood Count 6.7, Red Blood Count 4.45, Hemoglobin 13.7, Hematocrit 41, Mean Corpuscular Volume 93, Mean Corpuscular Hemoglobin 31, Mean Corpuscular Hemoglobin Concent 33, Red Cell Distribution Width 12.6, Platelet Count 249, Mean Platelet Volume 10.2, Neutrophils (%) (Auto) 47, Lymphocytes (%) (Auto) 37, Monocytes (%) (Auto) 12, Eosinophils (%) (Auto) 4, Basophils (%) (Auto) 0, Neutrophils # (Auto) 3.2, Lymphocytes # (Auto) 2.5, Monocytes # (Auto) 0.8, Eosinophils # (Auto) 0.3, Basophils # (Auto) 0.0, Sodium Level 139, Potassium Level 3.7, Chloride Level 109H, Carbon Dioxide Level 19L, Anion Gap 11, Blood Urea Nitrogen 16, Creatinine 0.81, Estimat Glomerular Filtration Rate > 60, BUN/Creatinine Ratio 20, Glucose Level 109H, Calcium Level 8.4L, Corrected Calcium 8.6, Total Bilirubin 0.2, Aspartate Amino Transf (AST/SGOT) 29, Alanine Aminotransferase (ALT/SGPT) 40, Alkaline Phosphatase 60, Troponin I < 0.028, Total Protein 6.4, Albumin 3.7, Triglycerides Level 381H, Cholesterol Level 163, LDL Cholesterol Direct 98, VLDL Cholesterol 76H, HDL Cholesterol 34L Home Meds Active Protonix (Pantoprazole Sodium) 40 Mg Granpkt. 40 Mg PO DAILY Reported Vitamin D2 (Ergocalciferol (Vitamin D2)) 50,000 Unit Capsule 50,000 Units PO SA Atorvastatin Calcium 10 Mg Tablet 10 Mg PO HS Assessment/Pt Instructions Follow up with Dr. Patrick on 09/19 at 1:45 pm. Discharge Instructions Discharge Diet: Regular Diet Activity as Tolerated: Yes Consultations Cardiology/Dr. Ward Discharge Physical Examination General Appearance: Alert, No Acute Distress Respiratory: Clear to Auscultation, Normal Air Movement Cardiovascular: Regular Rate, No Murmurs Abdominal: Normal Bowel Sounds, Soft, No Tenderness, Other (negative Castellon's) Extremities: No Edema Neuro: Normal Speech Psych/Mental Status: Mental Status NL, Mood NL Allergies: Coded Allergies: No Known Drug Allergies (Unverified , 07/24/14) Copy Copies To 1: DAMIAN PATRICK MD Discharge Summary Date of Admission Sep 14, 2019 at 14:50 Date of Discharge Discharge Date: Sep 15, 2019 Clinical Quality Measures AMI/AHF: ASA po Prior to arrival: No DVT/VTE Risk/Contraindication: Risk Factor Score Per Nursin RFS Level Per Nursing on Admit: 1=Low/No VTE PPX CAMILO LAZCANO MD Sep 15, 2019 12:01
[2019-09-15 12:15] VITALS: BP 108/67
[2019-09-15] MEDS ORDERED: OMEGA 3 (FISH OIL) 1000 MG CAP PO SCH (17:00)
== END 2019-09-15 12:15 | disposition home or self-care (01) | DRG 313 ==
LOC: EDUNIT# 12:27 → ER FS 12:41 → ICU 14:50
PROVIDERS: ADMIT Family Medicine; ATTEND Family Medicine
DX: R07.9 Chest pain, unspecified (principal); K21.9 Gastro-esophageal reflux disease without esophagitis; E78.5 Hyperlipidemia, unspecified; E78.00 Pure hypercholesterolemia, unspecified; E78.1 Pure hyperglyceridemia; I10 Essential (primary) hypertension
CPT/HCPCS: 36415; 71045; 78452; 80053; 80061; 80306; 81000; 83690; 83735; 83874; 84484; 85025; 85610; 85730; 93005; 93017; 93306

== ENCOUNTER → 2020-02-15 | Outpatient (CLI) | payer OTHER ==
[~2020-02-15] MED LIST changes: +ATOR10TA66 PO; +BARIUM SUSPENSION 2.1% (VANILLA SILQ) 450 ML PO ONE; +CATHETER FLUSH 10 ML SYR IV PRN; +ERGO50006 PO; +HOLD METFORMIN - RECEIVED CONTRAST 20 ML VIAL IV SCH; +IOHEXOL 350 MG/ML 100 ML (OMNIPAQUE 350) VIAL IV ONE; +NS 100 ML (IVPB) BAG IV ONE; +PANT40SU PO
--- NOTE | 2020-02-15 12:57 | Diagnostic Imaging Report ---
INDICATION: Pancreatic cyst, follow-up. TECHNIQUE: Multiple contiguous axial CT images of the abdomen were obtained prior to and after intravenous administration of iodinated contrast. Auto Exposure Controls were utilized during the CT exam to meet ALARA standards for radiation dose reduction. There are no previous studies available at this time for comparison. FINDINGS: The visualized portions of the lung bases are clear. There were no pleural fluid collections. There is no free intraperitoneal air. The liver shows mild diffuse low-density change compatible with fatty infiltration. There is no focal liver lesion. Gallbladder appears normal. The spleen, adrenals, and kidneys appear unremarkable. The pancreas shows a 9 mm cystic lesion of the pancreatic body to the midline. The remainder of the pancreas appear normal. There is no retroperitoneal mass or adenopathy. There is no ascites or abnormal fluid collection. Visualized bowel loops are unremarkable. IMPRESSION: There is a 9 mm cystic lesion in the pancreatic body near the midline. Differential diagnosis would include intraductal papillary mucinous neoplasm, pseudocyst, or serous cystadenoma, or other lesions. Would consider a follow-up study in one year. There is diffuse fatty infiltration of the liver. Dictated by: Dictated on workstation # [id number]
== END ==
LOC: RAD FS 09:35
PROVIDERS: ATTEND Family Medicine
DX: K86.2 Cyst of pancreas (principal)
CPT/HCPCS: 74170

== ENCOUNTER → 2020-04-24 | Outpatient (CLI) | payer OTHER ==
[~2020-04-24] MED LIST changes: -BARIUM SUSPENSION 2.1% (VANILLA SILQ) 450 ML PO ONE; -CATHETER FLUSH 10 ML SYR IV PRN; -HOLD METFORMIN - RECEIVED CONTRAST 20 ML VIAL IV SCH; -IOHEXOL 350 MG/ML 100 ML (OMNIPAQUE 350) VIAL IV ONE; -NS 100 ML (IVPB) BAG IV ONE
[2020-04-25 15:37] LABS: BUN/CREATININE RATIO 10; CALCIUM 9.6 MG/DL (8.5-10.1); CARBON DIOXIDE 25 MMOL/L (21-32); CHLORIDE 100 MMOL/L (98-107); CREATININE SERUM 0.92 MG/DL (0.60-1.30); GFR ESTIMATED > 60; GLUCOSE 99 MG/DL (70-105); SODIUM 139 MMOL/L (135-145)
[2020-04-25 15:38] LABS: ALANINE AMINOTRANSFERASE 67 U/L (0-55); ALBUMIN 4.8 GM/DL (3.2-4.5); ALKALINE PHOSPHATASE 70 U/L (40-136); BILIRUBIN,TOTAL 0.4 MG/DL (0.1-1.0)
[2020-04-25 15:44] LABS: CHOLESTEROL 264 MG/DL (< 200); HDL CHOLESTEROL 49 MG/DL (40-60); TRIGLYCERIDES 226 MG/DL (<150); VLDL CHOLESTEROL 45 MG/DL (5-40)
== END ==
LOC: LAB FS 11:22
PROVIDERS: ATTEND Internal Medicine Cardiovascular Disease
DX: I10 Essential (primary) hypertension (principal); E78.2 Mixed hyperlipidemia
CPT/HCPCS: 36415; 80053; 80061

== ENCOUNTER → 2020-06-20 | Outpatient (CLI) | payer OTHER ==
[~2020-06-20] MED LIST changes: +CATHETER FLUSH 10 ML SYR IV PRN; +HOLD METFORMIN - RECEIVED CONTRAST 20 ML VIAL IV SCH; +IOHEXOL 350 MG/ML 100 ML (OMNIPAQUE 350) VIAL IV ONE; +NS 100 ML (IVPB) BAG IV ONE
--- NOTE | 2020-06-20 10:17 | Diagnostic Imaging Report ---
PROCEDURE: CT chest with contrast only. TECHNIQUE: Multiple contiguous axial images were obtained through the chest after administration of intravenous contrast. Auto Exposure Controls were utilized during the CT exam to meet ALARA standards for radiation dose reduction. INDICATION: Lung nodule. No prior CT chest studies available for comparison. No axillary lymphadenopathy is identified. No mediastinal or hilar lymphadenopathy is detected. No pericardial or pleural fluid is identified. Lungs appear to be clear. No nodules or masses are seen. No infiltrates are detected. Upper abdomen does demonstrate diffuse hepatic steatosis. The cystic lesion previously described in the pancreas is stable at 9 mm. IMPRESSION: 1. Unremarkable CT of the chest. There is no evidence of thoracic lymphadenopathy, effusion or pulmonary parenchymal abnormality. 2. Stable pancreatic cystic lesion when compared to exam from 02/15/2020. Dictated by: Dictated on workstation # [id number]
== END ==
LOC: RAD FS 08:48
PROVIDERS: ATTEND Family Medicine
DX: R91.1 Solitary pulmonary nodule (principal); K86.2 Cyst of pancreas
CPT/HCPCS: 71260

== ENCOUNTER → 2020-10-22 | Outpatient (CLI) | payer OTHER ==
[~2020-10-22] MED LIST changes: -CATHETER FLUSH 10 ML SYR IV PRN; -HOLD METFORMIN - RECEIVED CONTRAST 20 ML VIAL IV SCH; -IOHEXOL 350 MG/ML 100 ML (OMNIPAQUE 350) VIAL IV ONE; -NS 100 ML (IVPB) BAG IV ONE
== END ==
LOC: LAB FS 11:36
PROVIDERS: ATTEND Orthopaedic Surgery Orthopaedic Surgery of the Spine
DX: Z01.812 Encounter for preprocedural laboratory examination (principal); Z20.822 Contact with and (suspected) exposure to COVID-19
CPT/HCPCS: 87635

== ENCOUNTER → 2021-03-06 | Outpatient (CLI) | payer BC ==
[~2021-03-06] MED LIST changes: +BARIUM SUSPENSION 2.1% (VANILLA SILQ) 450 ML PO ONE; +CATHETER FLUSH 10 ML SYR IV PRN; +HOLD METFORMIN - RECEIVED CONTRAST 20 ML VIAL IV SCH; +IOHEXOL 350 MG/ML 100 ML (OMNIPAQUE 350) VIAL IV ONE; +NS 100 ML (IVPB) BAG IV ONE
--- NOTE | 2021-03-06 11:18 | Diagnostic Imaging Report ---
EXAMINATION: CT abdomen with and without intravenous contrast. TECHNIQUE: Precontrast acquisitions were acquired through the abdomen . Multiple contiguous axial images were obtained through the abdomen after the administration of intravenous contrast. All CT scans use one or more of the following dose optimizing techniques: automated exposure control, MA and/or KvP adjustment based on patient size and exam type or iterative reconstruction. HISTORY: Pancreatic lesion follow-up. COMPARISON: CT abdomen from 02/15/2020. FINDINGS: Lung bases: Bibasilar dependent atelectasis. There is a 0.4 cm right middle lobe pulmonary nodule, unchanged. Solid organs: The liver is normal without focal lesion. The gallbladder is normal. There is no biliary ductal dilation. There has been slight interval increased size of a 1.3 x 1.2 cm hypoattenuating lesion within the pancreatic neck (series 9 image 63) (previously 0.9 x 0.8 cm). There is no pancreatic ductal dilatation. No enhancing or solid component. Spleen is normal. Adrenal glands are normal. The kidneys are normal without hydronephrosis. Bowel: No bowel obstruction. Peritoneum: There is no intraperitoneal free fluid or free air. No suspicious lymphadenopathy. Vasculature: Normal without aneurysm. Musculoskeletal: No suspicious osseous lesion or compression fracture. IMPRESSION: 1. Interval increased size of the pancreatic neck hypoattenuating lesion compared to 02/15/2020. No new pancreatic ductal dilatation. Consider evaluation with EUS. Dictated by: Dictated on workstation # [id number]
== END ==
LOC: RAD FS 10:13
PROVIDERS: ATTEND Family Medicine
DX: K86.9 Disease of pancreas, unspecified (principal)
CPT/HCPCS: 74170